=== PATIENT | male | born 1995 | race Hispanic/Latino ===

== ENCOUNTER 2016-07-20 21:07 | Emergency (ER) | payer OTHER ==
[~2016-07-20] VITALS: Ht 172.7 cm; Wt 104.3 kg
[~2016-07-20 21:07] MED LIST: AMOXICILLIN875 MG PO; MOTRIN800 MG PO
[2016-07-20 21:18] VITALS: BP 155/88
[2016-07-20 21:35] LABS: ABSOLUTE BASOPHIL COUNT 0.1 /CUMM (0.0-0.2); ABSOLUTE EOSINOPHIL COUNT 0 /CUMM (0.0-0.7); ABSOLUTE GRANULOCYTE CT 7.7 /CUMM (1.4-6.5); ABSOLUTE LYMPH COUNT 2.7 /CUMM (1.2-3.4); ABSOLUTE MONOCYTE COUNT 0.6 /CUMM (0.10-0.60); BASOPHIL % 0.6 % (0.0-2.0); EOSINOPHIL % 0.4 % (0-5); GRANULOCYTE % 69.2 % (42.2-75.2); HEMATOCRIT 44.1 % (42-52); MEAN CORPUSCULAR HGB 28.3 PG (27.0-31.0); MEAN CORPUSCULAR HGB CONC 33.7 G/DL (33.0-37.0); MEAN CORPUSCULAR VOLUME 84.1 FL (80.0-94.0); MEAN PLATELET VOLUME 9.9 FL (7.4-10.4); PLATELET COUNT 196 /CUMM (130-400); RBC DISTRIBUTION WIDTH 13.1 % (11.5-14.5); RED BLOOD CELL CT 5.25 /CUMM (4.70-6.10); WHITE BLOOD CELL COUNT 11.1 /CUMM (4.8-10.8)
--- NOTE | 2016-07-20 21:58 | RADIOLOGY REPORT ---
EXAMINATION: XR CHEST CLINICAL INFORMATION: Chest pain. COMPARISON: No relevant prior studies are available for comparison. TECHNIQUE: PA and lateral views of the chest were obtained. FINDINGS: The lungs are clear. The cardiomediastinal silhouette is normal in size. There is no pleural effusion or pneumothorax. No acute osseous abnormality. IMPRESSION: No acute cardiopulmonary disease.
--- NOTE | 2016-07-20 23:04 | ED CARDIAC/CP/PALPITATIONS ---
History of Present Illness General Chief Complaint: Chest Pain Stated Complaint: CHEST PAIN, LEFT ARM PAIN Source: patient Exam Limitations: no limitations Allergies Coded Allergies: NO KNOWN ALLERGIES (02/08/15) Triage Note: PT TO ED C/O CENTER CHEST PAIN THAT COMES AND GOES, FOR THE PAST 3 DAYS. STATES IS HAVING PAIN CURRENTLY, EPISODES LAST APPROX 1 HR "THEN GOES AWAY FOR APPROX 5 TO 8 HRS. STATES STARTED GOING TO THE GYM THIS WEEK. TENDER ON PALPATION AND STATES "SOMETIMES I CAN'T BREATHE IN BUT I CAN BREATHE OUT" Triage Nurses Notes Reviewed? yes HPI: This patient is a 20 year old male with a past medical history including GERD who presented for evaluation of chest pain x3 days. He reported that the episodes of pain last for 1 hour then subside for about 6 hours. They come and go on their own without any provoking or palliative factors.He reported increased stress at school. He reported that the pain gets up to a 4 out of 10, is sharp and nonradiating. Denied any palpitations, shortness of breath, jaw pain, arm pain, headaches, abdominal pain, nausea, or vomiting. He felt numbness in his left arm which is resolving that started about 4 hours ago which prompted him to come to the emergency room. He also reported that he just started working out at the gym this week. No PCP as he is trying to get insurance. (TINY ARCEO PA-C) Vital Signs & Intake/Output Vital Signs & Intake/Output Vital Signs Date Time Temp Pulse Resp B/P B/P Pulse O2 O2 Flow FiO2 Mean Ox Delivery Rate 07/20 2118 98.5 75 20 155/88 97 Room Air ED Intake and Output 07/21 0000 07/20 1200 Intake Total Output Total Balance Patient 230 lb Weight Past History Travel History Traveled to [place] past 21 day No Medical History Any Pertinent Medical History? see below for history Neurological: NONE EENT: NONE Cardiovascular: NONE Respiratory: NONE Gastrointestinal: GERD Hepatic: NONE Renal: NONE Musculoskeletal: NONE Psychiatric: NONE Endocrine: NONE Surgical History Surgical History: non-contributory Psychosocial History What is your primary language Andorran Tobacco Use: Never used ETOH Use: occasional use Illicit Drug Use: denies illicit drug use Family History Hx Contributory? No (TINY ARCEO PA-C) Review of Systems Review of Systems Constitutional: Reports: no symptoms. EENTM: Reports: no symptoms. Respiratory: Reports: no symptoms. Cardiovascular: Reports: see HPI. GI: Reports: no symptoms. Genitourinary: Reports: no symptoms. Musculoskeletal: Reports: no symptoms. Skin: Reports: no symptoms. Neurological/Psychological: Reports: see HPI. All Other Systems: Reviewed and Negative (TINY ARCEO PA-C) Physical Exam Physical Exam Cardiovascular: regular rate/rhythm, normal peripheral pulses, no murmurs, rubs or gallops. no carotid bruits Comments: General: well-developed, well-nourished person who appears anxious HEENT: head normocephalic, moist mucous membranes Neck: supple with no lymphadenopathy. no midline tenderness Back: normal gait Respiratory: No respiratory distress. speaking in full sentences. Lungs CTA bilaterally with no W/R/R Abdomen: Soft, nontender, and nondistended Neuro: A&Ox3. Cranial nerves grossly intact Skin: Skin is warm and dry. No rash on exposed skin Psych: Mood and affect normal Core Measures ACS in differential dx? Yes Severe Sepsis Present: No Septic Shock Present: No (TINY ARCEO PA-C) Progress Differential Diagnosis: AMI, atrial fibrillation, cholecystitis, CHF/pulm edema, costochondritis, hyperkalemia, hyperthyroid, hyperventilation, musculoskeletal pain, myocarditis, pancreatitis, pericarditis, pneumonia, PSVT, pulmonary embolism, PUD/GERD, PVCs/PACs, unstable angina, anxiety Initial ED EKG: normal axis, normal intervals, normal p-waves, normal QRS complex, normal sinus rhythm, no ST T wave changes, 72 bpm (TINY ARCEO PA-C) Plan of Care: Orders Procedure Date/time Status TROPONIN LEVEL 07/20 2118 Complete COMPREHENSIVE METABOLIC PANEL 07/20 2118 Complete CBC WITHOUT DIFFERENTIAL 07/20 2118 Complete EKG 07/20 2108 Active Laboratory Tests 07/20/162126: Anion Gap 12, Estimated GFR > 60, BUN/Creatinine Ratio 17.3, Glucose 104 H, Calcium 9.1, Total Bilirubin 0.6, AST 29, ALT 66, Alkaline Phosphatase 79, Troponin I < 0.01, Total Protein 7.4, Albumin 4.4, Globulin 3.0, Albumin/ Globulin Ratio 1.5, CBC w Diff NO MAN DIFF REQ, RBC 5.25, MCV 84.1, MCH 28.3, RDW 13.1, MPV 9.9, Gran % 69.2, Lymphocytes % 24.5, Monocytes % 5.3, Eosinophils % 0.4, Basophils % 0.6, Absolute Granulocytes 7.7 H, Absolute Lymphocytes 2.7, Absolute Monocytes 0.6, Absolute Eosinophils 0, Absolute Basophils 0.1, PUBS MCHC 33.7 Departure Departure Disposition: HOME OR SELF CARE Condition: Stable Clinical Impression Primary Impression: Chest pain Qualifiers: Chest pain type: unspecified Qualified Code: R07.9 - Chest pain, unspecified Referrals: PATIENT HAS NO PRIMARY CARE DR (PCP/Family) Additional Instructions: please establish a primary care physician. return for any worsening symptoms or concerns. Departure Forms: Customer Survey General Discharge Information (TINY ARCEO PA-C) PA/CAREER TECHNICAL EDUCATION INSTRUCTOR Co-Sign Statement Statement: ED Attending supervision documentation- I saw and evaluated the patient. I have also reviewed all the pertinent lab results and diagnostic results. I agree with the findings and the plan of care as documented in the PA's/CAREER TECHNICAL EDUCATION INSTRUCTOR's documentation. x I have reviewed the ED Record and agree with the PA's/CAREER TECHNICAL EDUCATION INSTRUCTOR's documentation. [] Additions or exceptions (if any) to the PAs/CAREER TECHNICAL EDUCATION INSTRUCTOR's note and plan are summarized below: [] (PRISCILLA MARTIN,LEATHA) Critical Care Note Critical Care Note Critical Care Time: non-applicable (TINY ARCEO PA-C)
== END 2016-07-20 23:19 ==
LOC: ERH 21:07
PROVIDERS: Emergency Medicine
DX: R07.9 Chest pain, unspecified (principal)
CPT/HCPCS: 93005; 93010